=== PATIENT | female | born 2000 | race Caucasian/White ===

== ENCOUNTER 2021-10-13 16:03 | Emergency (ER) | payer OTHER, SELFPAY ==
[2021-10-13 16:04] VITALS: BP 134/79; PULSE 64; RESP 16; TEMP 36.8; O2SAT 99; BMI 24.0
--- NOTE | 2021-10-13 16:07 | ED.RN ---
PER PT SHE WAS TOLD SHE DOES NOT NEED A DRUG SCREEN
--- NOTE | 2021-10-13 16:23 | EX.ED.UPPERE ---
HPI History of Present Illness Chief Complaint: Upper Extremity Injury Informant: patient Narrative Narrative: [id number] female sent from work injury occurring 4 days ago to the right ring finger. Crush injury while lifting a box that, down on her nail. There is ecchymosis to the finger states 2 days ago feels pain going up her hand. There is no swelling. Patient is using ibuprofen with relief of symptoms. States he has paresthesia. Was not evaluated in any health care center since that incident. No past medical history. PFSH PFSH Allergy/AdvReac Type Severity Reaction Status Date / Time black pepper AdvReac Hives Verified 10/13/21 16:07 Surgical History (Updated 10/13/21 @ 16:26 by Cornell Saenz) H/O eye surgery Social History Smoking Status: Never smoker ROS ROS ED Constitutional Constitutional ED: Denies chills, fever(s) or sweats Eyes Eyes: Denies change in vision ENT ENT ED: Denies dysphagia or sore throat Cardiovascular Cardiovascular: Denies chest pain, leg edema, palpitations or racing heartbeat Respiratory/Chest Respiratory/Chest: Denies cough, dyspnea or dyspnea on exertion Gastrointestinal Gastrointestinal: Denies abdominal pain, diarrhea, nausea or vomiting Genitourinary Genitourinary ED: Denies dysuria, hematuria or urinary frequency Musculoskeletal Musculoskeletal: Reports extremity pain and other Details: Right ring finger injury ; Denies back pain or neck pain Integumentary Denies rash or wounds Neurologic Neurologic: Denies headache(s), paresthesias or weakness EXAM Physical Exam Const Vital Signs: 10/13/21 16:04 Temperature 98.2 F Temperature Source Temporal Pulse Rate 64 Respiratory Rate 16 Blood Pressure 134/79 H Blood Pressure Mean 97 Pulse Ox 99 Oxygen Delivery Method Room Air Positive well nourished and well developed General Appearance ED: well developed and NAD HEENT Reports moist mucous membranes normocephalic and atraumatic Eyes PERRL, EOMs intact bilaterally and conjunctivae normal General Eye ED: Yes normal appearance of both eyes Neck no lymphadenopathy and supple General: Negative for tenderness Chest Wall Chest: Negative for tenderness Resp normal respiratory effort and normal air movement Effort and Inspection: symmetric chest movement; Negative for respiratory distress Cardio regular rate, regular rhythm and no murmurs Peripheral Pulses: pulses 2+ throughout GI normal to inspection, nondistended, normoactive bowel sounds and non-tender Palpation: Negative for guarding or rebound tenderness present Back/Spine no CVA tenderness and no thoracic nor lumbar tenderness Extremity normal to inspection Extremity Narrative: Right hand ring finger: Mild tenderness of the nailbed, there is a 50% subungual hematoma slanted position towards the ulnar aspect of the finger. There is no deformity there is no swelling. Sensation is intact. Skin is intact. General Extremety ED: Yes tenderness; Negative for edema General Extremity: Negative for edema Neuro oriented x3 and no sensory deficits noted Sensorium / Orientation: awake and alert Skin no rashes or lesions noted and no wounds MDM MDM MDM Narrative Medical decision making narrative: Patient nontoxic in no acute distress. Right ring finger injury with subungual hematoma. X-ray ring finger 3 views reviewed by myself shows no fractures. Discussed with patient increasing symptoms with her subungual hematoma discussed trephination for which she agrees. Performed with improvement of symptoms. Patient use Tylenol or Motrin as needed she is given follow-up with [facility]. All questions were answered. Procedure note: Trephination. Verbal consent from patient. Hand was stabilized on the bed underneath [place]. Trephination performed with 3 holes over the subungual hematoma with positive blood output. Hematoma improved. Patient tolerated procedure well. Discharge Plan Triage Chief Complaint: Upper Extremity Injury ED Provider: Eric Schmidt Dx/Rx/DC Orders Clinical Impression: Crushing injury of right ring finger, Subungual hematoma of right ring finger Instructions: ED Crush Injury, Hand, ED Subungual Hematoma Primary Care Provider: Liana Mandujano SCIENCE MANAGER [facility]: [facility] [GROUP OF PHYSICIANS] - 1 Week [facility] Doctor,Out of [NON-STAFF] - Activity Restrictions/Additional Instructions: X-ray negative for fracture. Status post trephination. May continue to cover with your splint. Keep dressing or bandage over this. Follow-up with [facility] as needed. Disposition Disposition: Home, Self Care Discharge Date/Time: 10/13/21 17:16
--- NOTE | 2021-10-13 16:45 | RAD_ITS ---
STUDY: X-RAY - RIGHT HAND, ATTENTION FOURTH FINGER REASON FOR EXAM: Female, 20 years old. Injury -- ring finger TECHNIQUE: 3 view(s) of the finger were obtained. COMPARISON: None. FINDINGS: Normal metacarpal head. Normal metacarpophalangeal joint. Normal proximal phalanx. Normal middle phalanx. Normal distal phalanx. Normal proximal interphalangeal joint. Normal distal interphalangeal joint. RAD/Finger(s) Min 2 Views IMPRESSION: Normal x-ray examination of the finger. Electronically Signed: Heavenly Fagan MD at 17:32 EDT ,
[2021-10-13 17:15] VITALS: O2SAT 100
== END 2021-10-13 17:16 | disposition home or self-care (01) ==
PROVIDERS: Emergency Provider Emergency Medicine; PCP Nurse Practitioner Family; Visit Provider Emergency Medicine
DX: S60.141A Contusion of right ring finger with damage to nail, initial encounter (principal); X58.XXXA Exposure to other specified factors, initial encounter
CPT/HCPCS: 73140; 99282